=== PATIENT | female | born 1935 | race Caucasian/White ===

== ENCOUNTER → 2016-09-04 | Outpatient (CLI) | payer MEDICARE ==
[~2016-09-04] MED LIST: ADVAIR 250/501 DISK IH; ADVIL200 M3 PO; CARDIZEM120 MG PO; CELEXA10 M1 PO; LASIX40 MG PO; PREDNISONE10 MG PO; TYLENOL EXTRA500 MG PO
== END | disposition home or self-care (01) ==
LOC: CDC 14:00
DX: Z01.810 Encounter for preprocedural cardiovascular examination (principal); M65.322 Trigger finger, left index finger; M65.332 Trigger finger, left middle finger; Z88.0 Allergy status to penicillin; Z88.2 Allergy status to sulfonamides
CPT/HCPCS: 93000

== ENCOUNTER 2016-10-23 22:15 | Emergency (ER) | payer OTHER ==
[~2016-10-23] VITALS: Ht 154.9 cm; Wt 65.0 kg
[2016-10-24] MEDS ORDERED: ZOFRAN ODT4 MG PO (01:53)
[2016-10-24] MEDS ORDERED: DILAUDID2 MG PO (01:53)
[2016-10-24 02:09] VITALS: BP 170/49
== END 2016-10-24 02:11 | disposition home or self-care (01) ==
LOC: EME 22:15
DX: S82.144A Nondisplaced bicondylar fracture of right tibia, initial encounter for closed fracture (principal); W01.0XXA Fall on same level from slipping, tripping and stumbling without subsequent striking against object, initial encounter; J44.9 Chronic obstructive pulmonary disease, unspecified; Z96.652 Presence of left artificial knee joint; F17.200 Nicotine dependence, unspecified, uncomplicated
CPT/HCPCS: 73130; 73502; 73564; 73700; 99281; 99284; J3010